=== PATIENT | male | born 1955 | race Caucasian/White ===

== ENCOUNTER 2021-09-17 22:46 | Emergency (ER) | payer BC, MEDICAID ==
[~2021-09-17] VITALS: Ht 182.9 cm; Wt 84.1 kg
[~2021-09-17 22:46] MED LIST: CYCL-394 PO; ISOS60TA PO; MELO-82 PO; NOR5T PO; NORCO10T PO
[2021-09-17] MEDS ORDERED: diltiazem 5mg/ml 5ml inj. IV ONE ×2 (23:10→23:45)
[2021-09-17] MEDS ORDERED: normal saline 1000ml 1,000 ML IV ONE (23:10)
[2021-09-17 23:23] LABS: BASOPHILS # (AUTO) 0.1 X10'3 (0-0.2); BASOPHILS % (AUTO) 0.6 % (0-1); EOSINOPHILS # (AUTO) 0.3 X10'3 (0-0.9); EOSINOPHILS % (AUTO) 2.4 % (0-6); HEMATOCRIT 41.9 % (42.0-52.0); HEMOGLOBIN 14.4 g/dl (14.0-17.9); LYMPHOCYTES # (AUTO) 3.5 X10'3 (1.1-4.8); LYMPHOCYTES % (AUTO) 29.3 % (21-51); MEAN CORPUSCULAR HEMOGLOBIN 32.8 PG (27.0-31.0); MEAN CORPUSCULAR HGB CONC 34.4 g/dL (33.0-36.5); MEAN CORPUSCULAR VOLUME 95.3 FL (78-98); MEAN PLATELET VOLUME 8.2 FL (7.4-10.4); MONOCYTES # (AUTO) 0.6 X10'3 (0-0.9); MONOCYTES % (AUTO) 5.3 % (2-12); NEUTROPHILS # (AUTO) 7.5 X10'3 (1.8-7.7); NEUTROPHILS % (AUTO) 62.4 % (42-75); PLATELET COUNT 186 X10'3 (140-440); RED CELL DISTRIBUTION WIDTH 13.5 % (11.5-14.5); WHITE BLOOD COUNT 12.1 X10'3 (4.5-11.0)
[2021-09-17 23:34] LABS: ALANINE AMINOTRANSFERASE 25 U/L (12-78); ALBUMIN 3.8 G/DL (3.4-5.0); ALKALINE PHOSPHATASE 98 IU/L (46-116); ANION GAP 8 (8-16); ASPARTATE AMINO TRANSFERASE 27 U/L (10-37); BILIRUBIN,TOTAL 0.3 MG/DL (0.1-1.0); BLOOD UREA NITROGEN 27 MG/DL (7-18); BUN/CREATININE RATIO 20.5 (5.4-32.0); CHLORIDE 104 MMOL/L (99-107); CREATININE 1.32 MG/DL (0.60-1.10); GLUCOSE 110 MG/DL (70-104); POTASSIUM 4.2 MMOL/L (3.5-5.1); SODIUM 139 MMOL/L (135-145); TOTAL PROTEIN 7.7 G/DL (6.4-8.2); eGFR 55 ML/MIN
[2021-09-18 00:17] LABS: CLARITY,URINE CLEAR (Clear); GLUCOSE, URINE NEGATIVE (Neg); KETONES,URINE NEGATIVE (Neg); LEUKOCYTE ESTERASE ,URINE NEGATIVE (Neg); NITRITES, URINE NEGATIVE (Neg); OCCULT BLOOD,URINE SMALL (Neg); PROTEIN,URINE NEGATIVE (Neg); UROBILINOGEN,URINE 0.2 E.U/dL (0.2-1.0)
[2021-09-18] MEDS ORDERED: normal saline 1000ml 1,000 ML IV ONE (00:20)
[2021-09-18 00:23] LABS: COLOR,URINE COLORLESS (Yellow); UA COLLECTION TYPE NON-SPECIFIED; URINE AMPHETAMINE SCREEN NEGATIVE (Neg); URINE BARBITUATE SCREEN NEGATIVE (Neg); URINE BENZODIAZEPINES SCREEN NEGATIVE (Neg); URINE CANNABINOID SCREEN NEGATIVE (Neg); URINE COCAINE SCREEN NEGATIVE (Neg); URINE METHADONE SCREEN NEGATIVE (Neg); URINE OPIATE SCREEN POSITIVE (Neg); URINE PHENCYCLIDINE SCREEN NEGATIVE (Neg)
[2021-09-18 00:24] LABS: BACTERIA,URINE FEW /HPF (Neg); RBC,URINE 0-2 /HPF (0-2); SQUAMOUS EPITHELIAL CELL,UR NONE SEEN /LPF (FEW); WBC,URINE NONE SEEN /HPF (0-4)
[2021-09-18] MEDS ORDERED: atropine 1 MG/1 ML vial IV ONE (00:35)
[2021-09-18] MEDS ORDERED: atropine 0.1mg/ml 10ml syringe IV ONE (00:40)
--- NOTE | 2021-09-18 00:45 | NUR ---
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 Doctor was notified and at bedside. Given order for IV Atropine. Repeat EKG completed. Doctor aware.
[2021-09-18 03:09] VITALS: BP 129/82
== END 2021-09-18 04:00 | disposition home or self-care (01) ==
LOC: ER 22:47
DX: I48.20 Chronic atrial fibrillation, unspecified (principal); Z88.8 Allergy status to other drugs, medicaments and biological substances; Z79.899 Other long term (current) drug therapy
CPT/HCPCS: 36415; 71045; 80053; 80305; 81001; 83880; 84443; 84484; 85025; 93005; 96374; 96375; 96376; 99285; J0461; J3490; J7030

== ENCOUNTER 2022-04-16 18:34 | Emergency (ER) | payer MEDICARE, BC ==
[~2022-04-16] VITALS: Ht 182.9 cm; Wt 80.0 kg
[~2022-04-16 18:34] MED LIST changes: +AMIO200T67 PO; +APIX5TAB3 PO; +ASPI-1071 PO; +ATOR20TA66 PO; +BUPR1PAT23 TOP; +CHOL100025 PO; +CLON-371 PO; +CLOP75TA34 PO; +CYAN1TAB69 PO; +CYCL-1 PO; -CYCL-394 PO; +ESCI-8 PO; +FAMO40TA8 PO; +GABA-530 PO; +ISOS30TA84 PO; -ISOS60TA PO; -MELO-82 PO; +METO-395 PO; -NOR5T PO; -NORCO10T PO
[2022-04-16 23:16] VITALS: BP 175/100
== END 2022-04-16 23:42 | disposition home or self-care (01) ==
LOC: ER 18:35
DX: S90.32XA Contusion of left foot, initial encounter (principal); X58.XXXA Exposure to other specified factors, initial encounter; Y93.89 Activity, other specified; Y92.89 Other specified places as the place of occurrence of the external cause; Y99.8 Other external cause status; I51.9 Heart disease, unspecified; Z79.899 Other long term (current) drug therapy; Z88.6 Allergy status to analgesic agent; Z79.1 Long term (current) use of non-steroidal anti-inflammatories (NSAID); Z79.2 Long term (current) use of antibiotics; Z79.82 Long term (current) use of aspirin
CPT/HCPCS: 73630; 99283